=== PATIENT | female | born 1995 | race Caucasian/White ===

== ENCOUNTER 2016-12-04 09:33 | Emergency (ER) | payer MEDICAID ==
[2016-12-04 09:58] VITALS: BP 124/69
--- NOTE | 2016-12-05 11:53 | ER ---
DATE SEEN: 12/04/2016 CHIEF COMPLAINT: Slight itching and moderate headache. HISTORY OF PRESENT ILLNESS: This is a pleasant 21-year-old, primipara with last menstrual period onset 3 days ago (12/01/2016) comes in with history of having headaches with her menstruation that usually occurs "2 weeks before the headache" (which suggests the headaches occur with ovulation." She was seen by Mandy Nagel, nurse practitioner, yesterday for abdominal pain and by ultrasound was thought to have a 4-cm ovarian cyst, consequently to further evaluate, she received CAT scan of the abdomen with IV and oral contrast yesterday. Before the CAT scan, she was noted to have some urinary retention. Otherwise, no past history of frequency, urgency, dysuria, pyelonephritis, other serious illnesses, or previous surgery, or . She has headaches intermittently and occasional migraines, but usually migraines occur at ovulation. She had onset of headache last night that occurred one-half hour after receiving IV contrast dye. It was 8/10 in intensity. She awoke this morning at 0500 hours with severe right bilateral sikh headache, more on the right than the left with associated shaking. She did not have a fever. No associated nausea, vomiting, diarrhea, aura, teichopsia, or linear lines noted or scotoma. No paresis, weakness, or numbness. No nausea or vomiting. Did eat breakfast. The patient denies increase of headache with coughing, sneezing, bowel movements, but notes the headache is worse by walking or stretching. SOCIAL HISTORY: Smoker. Does not drink alcohol. Otherwise, healthy. She had a concussion when she was 4 years old; she has not had concussion since. No alcohol recently. ALLERGIES: Ibuprofen, latex, and sulfa. There is a family history of allergies where the patient becomes extremely sick to prednisone and had dysphoria, nausea, and vomiting. CURRENT MEDICATIONS: Venlafaxine 75 mg daily and hydroxyzine as needed. PAST MEDICAL HISTORY: Other problems, teenage and anxiety attacks. PHYSICAL EXAMINATION: VITAL SIGNS: Blood pressure 124/69, heart rate 74, respirations 18, oxygen saturation 100%, temperature is 37.3 degrees centigrade. The patient is a 61.23 kg, BMI 22.5 kg/m2. GENERAL: The patient is well dressed and had moderate makeup placed. HEENT: PERRLA intact. Pharynx without abnormality. Eyegrounds normal appearance. No optic cup disc abnormality or retinal changes. Hearing intact. TMs negative. NECK: Supple. No thyromegaly. No neck stiffness. No bruits in neck. LUNGS: Clear to auscultation without rales, rhonchi, or wheezes. HEART: S1, S2. No murmur. No irregular rate and rhythm. ABDOMEN: Soft. No guarding. No abdominal discomfort. NEUROLOGIC: Deep tendon reflexes in upper and lower extremities symmetrical, 1+ normoactive. Cranial nerves II through XII intact. Oriented x3. Gait intact. Muscle testing upper and lower extremities is normal. Romberg negative. No pronator drift and no tremor and no dysmetria. SKIN: No rash noted. No areas of pruritus noted. ASSESSMENT: 1. Probable allergic and/or chemical mediated irritation from the intravenous contrast she had with CT yesterday. Her "rash"/itching started half an hour after the intravenous contrast. 2. Headache, etiology probably migraine. It is possibly not related to the patient's CT with contrast, but the patient stated it came on half an hour after CT contrast; however, this cannot be ruled out. 3. Probable migraine. 4. Smoking history. 5. Single mother. PLAN: I advised we would consider IV therapy, Reglan intravenously, and Benadryl IV. However, she preferred not to use any intravenous medicine or even shots, and would like a pill. She has been prescribed Reglan and Benadryl. She notes that she has allergic reaction to ibuprofen, which is significant with itching. No anaphylaxis. She, in fact, did not want Reglan, but is going to use Benadryl only. The patient dismissed to use Benadryl as needed 50 mg every 4 to 6 hours. DIAGNOSES: 1. Stress-induced headache. 2. Stress-induced migraine. 3. Smoker. 4. The patient is a mother out of [facility]. /[id number] CHRISTINE/NARESH OLIVARES
== END 2016-12-04 10:40 | disposition home or self-care (01) ==
LOC: FB.ED 09:33
DX: G43.909 Migraine, unspecified, not intractable, without status migrainosus (principal); F17.200 Nicotine dependence, unspecified, uncomplicated; Z88.2 Allergy status to sulfonamides; Z88.6 Allergy status to analgesic agent; Z91.040 Latex allergy status
CPT/HCPCS: 99283

== ENCOUNTER 2018-10-09 00:38 | Emergency (ER) | payer MEDICAID ==
[2018-10-09] MEDS ORDERED: Lidocaine 2% 20 ML MDV INFILT ONE (00:39)
[2018-10-09] MEDS ORDERED: Diphtheria,Pertussis(Acell),Tetanus Vaccine 0.5 ML SDV IM ONE (04:33)
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
[2018-10-09 08:01] VITALS: BP 131/71
== END 2018-10-09 04:39 | disposition home or self-care (01) ==
LOC: FB.ED 00:38
DX: S01.511A Laceration without foreign body of lip, initial encounter (principal); F41.9 Anxiety disorder, unspecified; F32.9 Major depressive disorder, single episode, unspecified; Z91.040 Latex allergy status; Z88.2 Allergy status to sulfonamides; Z79.899 Other long term (current) drug therapy; Z88.6 Allergy status to analgesic agent; W22.8XXA Striking against or struck by other objects, initial encounter
CPT/HCPCS: 12011; 90471; 90715; 99282; J2001

== ENCOUNTER 2018-12-04 02:43 | Emergency (ER) | payer MEDICAID, OTHER ==
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
[2018-12-04 05:11] VITALS: BP 118/77
== END 2018-12-04 04:10 | disposition home or self-care (01) ==
LOC: FB.ED 02:43
DX: S51.812A Laceration without foreign body of left forearm, initial encounter (principal); W13.4XXA Fall from, out of or through window, initial encounter; W01.110A Fall on same level from slipping, tripping and stumbling with subsequent striking against sharp glass, initial encounter; F17.200 Nicotine dependence, unspecified, uncomplicated; F10.120 Alcohol abuse with intoxication, uncomplicated; Z88.6 Allergy status to analgesic agent; Z88.2 Allergy status to sulfonamides; Z91.040 Latex allergy status; Z79.3 Long term (current) use of hormonal contraceptives; Z79.899 Other long term (current) drug therapy
CPT/HCPCS: 12004; 12013; 99282

== ENCOUNTER 2019-05-05 08:00 | Emergency (ER) | payer MEDICAID, OTHER ==
[2019-05-05] MEDS ORDERED: Sodium Chloride 0.9% 10 ML Syringe FLUSH PRN (08:03)
--- NOTE | 2019-05-05 08:20 | EDM.PDOCBH ---
ED HPI GENERAL MEDICAL PROBLEM - General Chief Complaint: Behavioral/Psych Stated Complaint: OVERDOSE Time Seen by Provider: 05/05/19 08:13 Source of Information: Reports: Patient, Family History Limitations: Reports: No Limitations - History of Present Illness INITIAL COMMENTS - FREE TEXT/NARRATIVE: Patient ingested a handful of Trazodone 50mg @0745 today in an attempt to harm herself. When asked why she attempted to harm herself, patient states "I don't want to talk about it." Denies prior h/o suicide attempt. Patient complains of drowsiness, otherwise no complaints. Poison control consulted, recommends observation for 4-6 hours, monitor for sedation and hypotension, give IVF for hypotension, recommend no activated charcoal. Onset: Today Onset Date: 05/05/19 Onset Time: 07:45 Improves with: Reports: None Worsens with: Reports: None - Related Data Allergies Allergy/AdvReac Type Severity Reaction Status Date / Time ibuprofen Allergy Tachycardia Verified 12/04/18 03:10 latex Allergy Rash Verified 12/04/18 03:13 Sulfa (Sulfonamide Allergy Rash Verified 12/04/18 03:10 Antibiotics) Home Meds: Home Meds Escitalopram [Lexapro] 20 mg PO DAILY 10/09/18 [History] Norgestimate-Ethinyl Estradiol [[place]iny[place] 28 Tablet] 1 each PO ASDIRECTED [History] Past Medical History Gastrointestinal History: Reports: Other (See Below) Other Gastrointestinal History: CT for generalized abd pain 12/03/16. 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 Psychiatric History: Reports: Anxiety, Depression - Past Surgical History HEENT Surgical History: Reports: Tonsillectomy GI Surgical History: Reports: None Musculoskeletal Surgical History: Reports: ORIF (Of left elbow) Social & Family History - Caffeine Use Caffeine Use: Reports: Coffee - Living Situation & Occupation Living situation: Reports: Single, with Family Occupation: Employed ED ROS GENERAL - Review of Systems Review Of Systems: Comprehensive ROS is negative, except as noted in HPI. ED EXAM, BEHAVIORAL HEALTH - Physical Exam Exam: See Below Exam Limited By: No Limitations General Appearance: Alert, WD/WN, No Apparent Distress Eye Exam: Bilateral Eye: EOMI, PERRL Ears: Normal External Exam Nose: Normal Inspection Throat/Mouth: No Airway Compromise Head: Atraumatic, Normocephalic Neck: Full Range of Motion Respiratory/Chest: No Respiratory Distress, Lungs Clear, Normal Breath Sounds Cardiovascular: Regular Rate, Rhythm, No Murmur GI/Abdominal: No Distention Back Exam: Full Range of Motion Extremities: Normal Range of Motion Neurological: Alert, No Motor/Sensory Deficits Psychiatric: Alert, Flat Affect Skin Exam: Other (Linear abrasions to left forearm) EKG INTERPRETATION EKG Date: 05/05/19 Time: 08:05 Rhythm: NSR Rate (Beats/Min): 87 [place]: Normal P-Wave: Present QRS: Normal ST-T: Normal QT: Normal Comparison: No Change (10/05/14) COURSE, BEHAVIORAL HEALTH COMP - Course Vital Signs: Last Vital Signs Temp 36.6 C 05/05/19 08:10 Pulse 95 05/05/19 08:10 Resp 19 05/05/19 08:10 BP 111/48 L 05/05/19 15:25 Pulse Ox 100 05/05/19 08:10 Orders, Labs, Meds: Active Orders 24 hr Category Date Time Status EKG Documentation Completion [RC] ASDIRECTED Care 05/05/19 08:02 Active Sodium Chloride 0.9% [Saline Flush] Med 05/05/19 08:03 Active 10 ml FLUSH ASDIRECTED PRN Saline Lock Insert [OM.PC] Routine Oth 05/05/19 08:03 Ordered EKG 12 Lead [EK] Stat Ther 05/05/19 08:01 Ordered Medication Orders Sodium Chloride (Saline Flush) 10 ml FLUSH ASDIRECTED PRN PRN Reason: Keep Vein Open Last Admin: 05/05/19 08:15 Dose: 10 ml Laboratory Tests 05/05/19 05/05/19 05/05/19 Range/Units 08:15 08:15 08:15 WBC 6.1 (4.5-12.0) X10-3/uL RBC 4.24 (3.23-5.20) x10(6)uL Hgb 13.6 (11.5-15.5) g/dL Hct 39.2 (30.0-51.3) % MCV 92.6 (80-96) fL MCH 32.2 (27.7-33.6) pg MCHC 34.7 (32.2-35.4) g/dL RDW 12.2 (11.5-15.5) % Plt Count 311 (125-369) X10(3)uL MPV 8.6 (7.4-10.4) fL Neut % (Auto) 63.3 (46-82) % Lymph % (Auto) 28.6 (13-37) % [place] % (Auto) 5.7 (4-12) % Eos % (Auto) 2 (1.0-5.0) % Baso % (Auto) 1 (0-2) % Neut # (Auto) 3.9 (1.6-8.3) # Lymph # (Auto) 1.8 (0.6-5.0) # [place] # (Auto) 0.3 (0.0-1.3) # Eos # (Auto) 0.1 (0.0-0.8) # Baso # (Auto) 0.0 (0.0-0.2) # Sodium 139 (135-145) mmol/L Potassium 3.3 L (3.5-5.3) mmol/L Chloride 102 (100-110) mmol/L Carbon Dioxide 25 (21-32) mmol/L BUN 9 (7-18) mg/dL Creatinine 0.7 (0.55-1.02) mg/dL Est Cr Clr Drug Dosing TNP Estimated GFR (MDRD) > 60 (>60) BUN/Creatinine Ratio 12.9 (9-20) Glucose 106 (80-116) mg/dL Calcium 8.7 (8.6-10.2) mg/dL Total Bilirubin 0.6 (0.1-1.3) mg/dL AST 17 (5-25) IU/L ALT 17 (12-36) U/L Alkaline Phosphatase 60 (56-112) IU/L Total Protein 7.2 (6.0-8.0) g/dL Albumin 3.7 (3.5-5.2) g/dL Globulin 3.5 g/dL Albumin/Globulin Ratio 1.1 TSH, Ultra Sensitive 1.15 (0.36-3.74) IU/mL Urine Color (YELLOW) Urine Appearance (CLEAR) Urine pH (5.0-6.5) Ur Specific [place] (1.010-1.025) Urine Protein (NEGATIVE) mg/dL Urine Glucose (UA) (NORMAL) mg/dL Urine Ketones (NEGATIVE) mg/dL Urine Occult Blood (NEGATIVE) Urine Nitrite (NEGATIVE) Urine Bilirubin (NEGATIVE) Urine Urobilinogen (NEGATIVE) mg/dL Ur Leukocyte Esterase (NEGATIVE) Urine WBC (0-5) Ur Squamous Epith Cells (NS,R,O) Urine Bacteria (NS) Urine HCG, Qual (NEGATIVE) Salicylates 4.0 (<2.8) mg/dL Urine Opiates Screen (NEGATIVE) Ur Oxycodone Screen (NEGATIVE) Ur Propoxyphene Screen (NEGATIVE) Acetaminophen < 2 L (<2) ug/mL Ur Barbituates Screen (NEGATIVE) Ur Tricyclics Screen (NEGATIVE) Ur Phencyclidine Scrn (NEGATIVE) Ur Amphetamine Screen (NEGATIVE) Urine MDMA Screen (NEGATIVE) U Benzodiazepines Scrn (NEGATIVE) U Cocaine Metab Screen (NEGATIVE) U Marijuana (THC) Screen (NEGATIVE) Ethyl Alcohol (<0.03) % 05/05/19 05/05/19 05/05/19 Range/Units 08:15 09:17 09:17 WBC (4.5-12.0) X10-3/uL RBC (3.23-5.20) x10(6)uL Hgb (11.5-15.5) g/dL Hct (30.0-51.3) % MCV (80-96) fL MCH (27.7-33.6) pg MCHC (32.2-35.4) g/dL RDW (11.5-15.5) % Plt Count (125-369) X10(3)uL MPV (7.4-10.4) fL Neut % (Auto) (46-82) % Lymph % (Auto) (13-37) % [place] % (Auto) (4-12) % Eos % (Auto) (1.0-5.0) % Baso % (Auto) (0-2) % Neut # (Auto) (1.6-8.3) # Lymph # (Auto) (0.6-5.0) # [place] # (Auto) (0.0-1.3) # Eos # (Auto) (0.0-0.8) # Baso # (Auto) (0.0-0.2) # Sodium (135-145) mmol/L Potassium (3.5-5.3) mmol/L Chloride (100-110) mmol/L Carbon Dioxide (21-32) mmol/L BUN (7-18) mg/dL Creatinine (0.55-1.02) mg/dL Est Cr Clr Drug Dosing Estimated GFR (MDRD) (>60) BUN/Creatinine Ratio (9-20) Glucose (80-116) mg/dL Calcium (8.6-10.2) mg/dL Total Bilirubin (0.1-1.3) mg/dL AST (5-25) IU/L ALT (12-36) U/L Alkaline Phosphatase (56-112) IU/L Total Protein (6.0-8.0) g/dL Albumin (3.5-5.2) g/dL Globulin g/dL Albumin/Globulin Ratio TSH, Ultra Sensitive (0.36-3.74) IU/mL Urine Color Yellow (YELLOW) Urine Appearance Clear (CLEAR) Urine pH 7.0 H (5.0-6.5) Ur Specific [place] 1.010 (1.010-1.025) Urine Protein Negative (NEGATIVE) mg/dL Urine Glucose (UA) Normal (NORMAL) mg/dL Urine Ketones Negative (NEGATIVE) mg/dL Urine Occult Blood Negative (NEGATIVE) Urine Nitrite Negative (NEGATIVE) Urine Bilirubin Negative (NEGATIVE) Urine Urobilinogen Normal (NEGATIVE) mg/dL Ur Leukocyte Esterase Negative (NEGATIVE) Urine WBC 0-5 (0-5) Ur Squamous Epith Cells Few H (NS,R,O) Urine Bacteria Few H (NS) Urine HCG, Qual Negative (NEGATIVE) Salicylates (<2.8) mg/dL Urine Opiates Screen (NEGATIVE) Ur Oxycodone Screen (NEGATIVE) Ur Propoxyphene Screen (NEGATIVE) Acetaminophen (<2) ug/mL Ur Barbituates Screen (NEGATIVE) Ur Tricyclics Screen (NEGATIVE) Ur Phencyclidine Scrn (NEGATIVE) Ur Amphetamine Screen (NEGATIVE) Urine MDMA Screen (NEGATIVE) U Benzodiazepines Scrn (NEGATIVE) U Cocaine Metab Screen (NEGATIVE) U Marijuana (THC) Screen (NEGATIVE) Ethyl Alcohol < 0.03 (<0.03) % 05/05/19 Range/Units 09:17 WBC (4.5-12.0) X10-3/uL RBC (3.23-5.20) x10(6)uL Hgb (11.5-15.5) g/dL Hct (30.0-51.3) % MCV (80-96) fL MCH (27.7-33.6) pg MCHC (32.2-35.4) g/dL RDW (11.5-15.5) % Plt Count (125-369) X10(3)uL MPV (7.4-10.4) fL Neut % (Auto) (46-82) % Lymph % (Auto) (13-37) % [place] % (Auto) (4-12) % Eos % (Auto) (1.0-5.0) % Baso % (Auto) (0-2) % Neut # (Auto) (1.6-8.3) # Lymph # (Auto) (0.6-5.0) # [place] # (Auto) (0.0-1.3) # Eos # (Auto) (0.0-0.8) # Baso # (Auto) (0.0-0.2) # Sodium (135-145) mmol/L Potassium (3.5-5.3) mmol/L Chloride (100-110) mmol/L Carbon Dioxide (21-32) mmol/L BUN (7-18) mg/dL Creatinine (0.55-1.02) mg/dL Est Cr Clr Drug Dosing Estimated GFR (MDRD) (>60) BUN/Creatinine Ratio (9-20) Glucose (80-116) mg/dL Calcium (8.6-10.2) mg/dL Total Bilirubin (0.1-1.3) mg/dL AST (5-25) IU/L ALT (12-36) U/L Alkaline Phosphatase (56-112) IU/L Total Protein (6.0-8.0) g/dL Albumin (3.5-5.2) g/dL Globulin g/dL Albumin/Globulin Ratio TSH, Ultra Sensitive (0.36-3.74) IU/mL Urine Color (YELLOW) Urine Appearance (CLEAR) Urine pH (5.0-6.5) Ur Specific [place] (1.010-1.025) Urine Protein (NEGATIVE) mg/dL Urine Glucose (UA) (NORMAL) mg/dL Urine Ketones (NEGATIVE) mg/dL Urine Occult Blood (NEGATIVE) Urine Nitrite (NEGATIVE) Urine Bilirubin (NEGATIVE) Urine Urobilinogen (NEGATIVE) mg/dL Ur Leukocyte Esterase (NEGATIVE) Urine WBC (0-5) Ur Squamous Epith Cells (NS,R,O) Urine Bacteria (NS) Urine HCG, Qual (NEGATIVE) Salicylates (<2.8) mg/dL Urine Opiates Screen Negative (NEGATIVE) Ur Oxycodone Screen Negative (NEGATIVE) Ur Propoxyphene Screen Negative (NEGATIVE) Acetaminophen (<2) ug/mL Ur Barbituates Screen Negative (NEGATIVE) Ur Tricyclics Screen Negative (NEGATIVE) Ur Phencyclidine Scrn Negative (NEGATIVE) Ur Amphetamine Screen Negative (NEGATIVE) Urine MDMA Screen Negative (NEGATIVE) U Benzodiazepines Scrn Negative (NEGATIVE) U Cocaine Metab Screen Negative (NEGATIVE) U Marijuana (THC) Screen Positive H (NEGATIVE) Ethyl Alcohol (<0.03) % Medications Generic Name Dose Route Start Last Admin Trade Name Freq PRN Reason Stop Dose Admin Sodium Chloride 10 ml 05/05/19 08:03 05/05/19 08:15 Saline Flush FLUSH 10 ml ASDIRECTED PRN Administration Keep Vein Open Discontinued Medications Generic Name Dose Route Start Last Admin Trade Name Freq PRN Reason Stop Dose Admin Sodium Chloride 1,000 mls @ 999 mls/hr 05/05/19 10:56 05/05/19 11:06 Normal Saline IV 05/05/19 11:56 999 mls/hr .BOLUS ONE Administration Re-Assessment/Re-Exam: 1055: BP dropped to 95/58, will order IVF bolus. 1230: Patient somnolent but easily arousable. SBP improved to 114/59 after 1L NS bolus. Medical Clearance: 05/05/19 12:37 Patient is medically cleared for psychiatric evaluation and treatment. Discharge vs Psych Eval/Treatment:: 05/05/19 16:26 Dr. Cerna accepted patient for transfer to [facility] Departure - Departure Time of Disposition: 16:26 Disposition: DC/Tfer to Psych Hosp/Unit [facility] Condition: Good Clinical Impression: Intentional self-harm Intentional drug overdose Qualifiers: Encounter type: initial encounter Qualified Code(s): T50.902A - Poisoning by unspecified drugs, medicaments and biological substances, intentional self-harm , initial encounter - Discharge Information *PRESCRIPTION DRUG MONITORING PROGRAM REVIEWED*: Yes *COPY OF PRESCRIPTION DRUG MONITORING REPORT IN PATIENT JAQUELIN: Not Applicable - My Orders Last 24 Hours: My Active Orders 05/05/19 08:01 EKG 12 Lead [EK] Stat 05/05/19 08:02 EKG Documentation Completion [RC] ASDIRECTED 05/05/19 08:03 Sodium Chloride 0.9% [Saline Flush] 10 ml FLUSH ASDIRECTED PRN Saline Lock Insert [OM.PC] Routine - Assessment/Plan Last 24 Hours: My Active Orders 05/05/19 08:01 EKG 12 Lead [EK] Stat 05/05/19 08:02 EKG Documentation Completion [RC] ASDIRECTED 05/05/19 08:03 Sodium Chloride 0.9% [Saline Flush] 10 ml FLUSH ASDIRECTED PRN Saline Lock Insert [OM.PC] Routine
[2019-05-05 08:51] LABS: ACETAMINOPHEN < 2 ug/mL (<2)
[2019-05-05] MEDS ORDERED: Sodium Chloride 0.9% 1,000 ML IV ONE (10:56)
[2019-05-05 11:37] VITALS: PULSE 95
[2019-05-05 15:25] VITALS: BP 111/48
== END 2019-05-05 17:00 ==
LOC: FB.ED 08:00
DX: T43.212A Poisoning by selective serotonin and norepinephrine reuptake inhibitors, intentional self-harm, initial encounter (principal); F41.9 Anxiety disorder, unspecified; F32.9 Major depressive disorder, single episode, unspecified; Z79.899 Other long term (current) drug therapy; Z88.6 Allergy status to analgesic agent; Z91.040 Latex allergy status; Z88.2 Allergy status to sulfonamides
CPT/HCPCS: 36415; 80053; 80305; 80320; 80329; 81001; 81025; 84443; 85025; 93005; 96360; 99285; J7030; G0480

== ENCOUNTER 2021-12-18 17:51 | Emergency (ER) | payer BC, MEDICAID ==
[2021-12-18 18:07] VITALS: BP 153/69; PULSE 115
[2021-12-18] MEDS ORDERED: Sodium Chloride 0.9% 10 ML Syringe FLUSH PRN (18:37)
[2021-12-18] MEDS ORDERED: Thiamine 200 MG/2 ML MDV IVPUSH STA (18:39)
[2021-12-18] MEDS ORDERED: Sodium Chloride 0.9% 1,000 ML IV SCH (18:45)
[2021-12-18 19:19] LABS: ESTIMATED GFR 105 mL/min (>60)
== END 2021-12-18 20:18 | disposition home or self-care (01) ==
LOC: FB.ED 17:51
DX: F10.10 Alcohol abuse, uncomplicated (principal); M89.8X8 Other specified disorders of bone, other site; Z79.899 Other long term (current) drug therapy; Z72.0 Tobacco use
CPT/HCPCS: 36415; 72220; 80053; 80307; 81001; 81025; 82150; 83690; 85025; 96361; 96374; 99284; J3411; J3490; J7030